=== PATIENT | male | born 1965 | race Caucasian/White ===

== ENCOUNTER 2022-10-09 08:20 | Outpatient (CLI) | payer BC, SELFPAY ==
[2022-10-09 13:58] LABS: Chloride* 100 mmol/L (96-114); Potassium* 4.4 mmol/L (3.6-5.1); Sodium* 138 mmol/L (135-149)
[2022-10-09 14:01] LABS: Blood Urea Nitrogen* 43 mg/dL (7-30); Carbon Dioxide* 26 mmol/L (20-32); Cholesterol* 228 mg/dL (90-199); Creatinine* 1.2 mg/dL (0.5-1.5); Estimated Glomerular Filt Rate 71 ml/min; Glucose* 241 mg/dL (60-115)
[2022-10-09 14:02] LABS: Calcium* 9.6 mg/dL (8.4-10.6); HDL Cholesterol* 35 mg/dL (>=40)
[2022-10-09 14:58] LABS: LDL Cholesterol Calculated 50 mg/dL (<100); Triglycerides* 717 mg/dL (40-149)
== END 2022-10-09 08:21 | disposition home or self-care (01) ==
PROVIDERS: PCP Family Medicine; Visit Provider Family Medicine
DX: I10 Essential (primary) hypertension (principal); E11.9 Type 2 diabetes mellitus without complications; E78.5 Hyperlipidemia, unspecified; Z12.5 Encounter for screening for malignant neoplasm of prostate
CPT/HCPCS: 80048; 80061; 84153

== ENCOUNTER 2023-10-08 10:04 | Outpatient (CLI) | payer BC, SELFPAY | END 2023-10-08 10:05 | disposition home or self-care (01) | PROVIDERS: PCP Family Medicine; Visit Provider Family Medicine | DX: Z00.00 Encounter for general adult medical examination without abnormal findings (principal); E11.9 Type 2 diabetes mellitus without complications; E78.2 Mixed hyperlipidemia; I10 Essential (primary) hypertension | CPT/HCPCS: 80048; 80061; 84460 ==

== ENCOUNTER 2024-04-08 08:04 | Outpatient (CLI) | payer BC, SELFPAY | END 2024-04-08 08:05 | disposition home or self-care (01) | LOC: NFLDREF 04-11 20:54 | PROVIDERS: PCP Family Medicine; Referring Provider Family Medicine; Visit Provider Family Medicine | DX: E11.9 Type 2 diabetes mellitus without complications (principal); I10 Essential (primary) hypertension; E78.2 Mixed hyperlipidemia; Z12.5 Encounter for screening for malignant neoplasm of prostate | CPT/HCPCS: 80061; G0103 ==

== ENCOUNTER 2024-10-01 07:01 | Outpatient (CLI) | payer BC, SELFPAY ==
--- NOTE | 2024-10-01 08:08 | W.ANESCHARGE ---
Anesthesia Charges Start Date/Time Anesthesia Start Date: 10/01/24 Anesthesia Start Time: 07:55 Stop Date/Time Anesthesia Stop Date: 10/01/24 Anesthesia Stop Time: 08:32
--- NOTE | 2024-10-01 08:35 | W.ANESCHARGE ---
Anesthesia Charges Start Date/Time Anesthesia Start Date: 10/01/24 Anesthesia Start Time: 07:55 Stop Date/Time Anesthesia Stop Date: 10/01/24 Anesthesia Stop Time: 08:32
== END 2024-10-01 07:02 | disposition home or self-care (01) ==
LOC: OP CLINIC 07:02
PROVIDERS: PCP Family Medicine; Visit Provider Surgery
DX: Z12.11 Encounter for screening for malignant neoplasm of colon (principal); D12.0 Benign neoplasm of cecum; D12.2 Benign neoplasm of ascending colon; D12.3 Benign neoplasm of transverse colon; D12.4 Benign neoplasm of descending colon; D12.8 Benign neoplasm of rectum; K57.30 Diverticulosis of large intestine without perforation or abscess without bleeding; Z86.0100 Personal history of colon polyps, unspecified
CPT/HCPCS: 00811; 45385; 88305; J2704

== ENCOUNTER 2025-10-06 08:00 | Outpatient (CLI) | payer BC, SELFPAY | END 2025-10-06 08:01 | disposition home or self-care (01) | PROVIDERS: PCP Family Medicine; Referring Provider Family Medicine; Visit Provider Family Medicine | DX: E11.9 Type 2 diabetes mellitus without complications (principal); I10 Essential (primary) hypertension; E78.2 Mixed hyperlipidemia; Z12.5 Encounter for screening for malignant neoplasm of prostate | CPT/HCPCS: 80048; 80061; 84460; G0103 ==

== ENCOUNTER 2025-10-07 07:54 | Outpatient (CLI) | payer BC, SELFPAY | END 2025-10-07 07:55 | disposition home or self-care (01) | LOC: NFLDREF 10-12 18:26 | PROVIDERS: PCP Family Medicine; Referring Provider Family Medicine; Visit Provider Family Medicine | DX: E11.9 Type 2 diabetes mellitus without complications (principal) | CPT/HCPCS: 82043; 82570 ==